=== PATIENT | male | born 1960 | race Caucasian/White ===

== ENCOUNTER 2018-06-22 06:43 | Day surgery (SDC) | payer BC ==
[2018-06-22 07:36] VITALS: BP 178/107; TEMP 97.4
[2018-06-22] MEDS ORDERED: Diazepam 5 MG TAB ONE (07:54)
[2018-06-22 08:08] VITALS: BMI 42.5
--- NOTE | 2018-06-22 10:41 | RAD ---
XR MYELOGRAM 2 OR MORE REGIONS CERVICAL AND LUMBAR: COMPARISON: None. FINDINGS: [employer] radiographs demonstrate grade I L4-L5 anterolisthesis. No acute fracture. The patient was brought to the fluoroscopy suite. All questions were answered. The patient's back was prepped and draped in normal sterile fashion. Informed consent was obtained. Timeout performed. Three mL of Lidocaine was instilled into the superficial and deep soft tissues. Prior to the examina tion, the patient was given 5 mg of Valium for anxiolysis. Using a 22-gauge needle, the thecal sac was accessed. Eleven cc of Omnipaque 300 was instilled into the thecal sac. The patient was tilted in the head-down position until contrast was seen within the cervical canal. IMPRESSION: Technically successful fluoroscopic-guided myelogram for cervical and lumbar myelograms. POS: [facility]
--- NOTE | 2018-06-22 11:26 | CT ---
CT CERVICAL SPINE WITH INTRATHECAL CONTRAST: HISTORY: M47.12, cervical myelopathy and radiculopathy. COMPARISON: None. TECHNIQUE: CT of the cervical spine was performed after intrathecal instillation of contrast. FINDINGS: The paraspinal soft tissues are unremarkable. The lung apices are clear. The thyroid is unremarkable. The paraspinal musculature is normal. No acute fracture. No malalignment. Levels are as follows: C1-C2: Mild degenerative disease at the C1-C2 articulation. Mild narrowing. No acute abnormality. C2-C3: Mild degenerative disk space height loss. Low grade uncinate process hypertrophy. There is moderate left and mild right sided neural foraminal narrowing due to a combination of facet arthrosis and uncinate process hypertrophy. C3-C4: There is severe degenerative disk space height loss. There is circumferential disk osteophyt e complex with superimposed uncinate process hypertrophy. There is mild bilateral facet arthrosis. There is moderate to severe right and moderate left sided neural foraminal narrowing. There is mild effacement of the ventral CSF space without cord abutment. The canal measures approximately a centim eter. C4-C5: Mild degenerative disk space height loss. Mild uncinate process hypertrophy. There is a low grade central and left paracentral posterior disk protrusion. There is narrowing of the ventral CSF space. The spinal canal still measures over a centimeter. The disk protrusion causes moderate left and mild right-sided neural foraminal narrowing. C5-C6: Circumferential disk osteophyte complex and moderate to severe degenerative disk space height loss. There is bilateral subforaminal extension of the posterior disk osteophyte complex. Mild fac et arthropathy. Moderate to severe left and moderate right sided neural foraminal narrowing. C6-C7: There is moderate uncinate process hypertrophy bilaterally. Low grade posterior disk osteoph yte complex. No significant neural foraminal or spinal canal narrowing. IMPRESSION: Moderate spondylosis, as described above. POS: [facility]
--- NOTE | 2018-06-22 11:30 | CT ---
CT LUMBAR SPINE WITH INTRATHECAL CONTRAST: HISTORY: M47.16, lumbar spondylosis with myelopathy. COMPARISON: None. FINDINGS: The aortic contour is nonaneurysmal. No retroperitoneal adenopathy. There is a hypodensity, superior cortex, right kidney, incompletely evaluated. The paraspinal musculature is symmetric. No acute fracture. There is grade 1 anterolisthesis of L5 over S1 due to bilateral pars interarticularis defects with 6 mm of anterolisthesis. Levels are as follows: L1-L2: Low grade facet arthrosis. No neural foramina or spinal canal narrowing. Normal disk height . L2-L3: Normal disk height. Mild facet arthrosis. No neural foraminal or spinal canal narrowing. L3-L4: Small bilateral recess and subforaminal zone posterior disk osteophyte complexes. Mild bilat eral neural foraminal narrowing. No significant narrowing of the spinal canal. L4-L5: Normal disk space height. Moderate facet arthrosis. No significant neural foraminal or spin al canal narrowing. L5-S1: Anterolisthesis, 6 mm. There are bilateral subforaminal and lateral recess posterior disk os teophyte complexes. There is moderate to severe bilateral neural foraminal narrowing with abutment o f the exiting nerve roots. IMPRESSION: Spondylosis centered at L5-S1 with bilateral pars interarticularis defects, 6 mm of anterolisthesis, and severe neural foraminal narrowing with nerve root abutment. POS: [facility]
== END 2018-06-22 09:55 | disposition home or self-care (01) ==
LOC: RAD 06:43
PROVIDERS: ATTEND Radiology Diagnostic Radiology
PROC: B01B1ZZ Fluoroscopy of Spinal Cord using Low Osmolar Contrast (ICD-10-PCS; principal; 2018-06-22)
DX: M43.16 Spondylolisthesis, lumbar region (principal); M47.12 Other spondylosis with myelopathy, cervical region; M47.16 Other spondylosis with myelopathy, lumbar region; M47.817 Spondylosis without myelopathy or radiculopathy, lumbosacral region; Z79.02 Long term (current) use of antithrombotics/antiplatelets; Z79.84 Long term (current) use of oral hypoglycemic drugs; Z79.82 Long term (current) use of aspirin; Z79.899 Other long term (current) drug therapy
CPT/HCPCS: 62305; 72126; 72132

== ENCOUNTER 2019-05-07 07:51 | Outpatient (CLI) | payer BC | END 2019-05-07 07:52 | disposition home or self-care (01) | LOC: CP 07:51 | PROVIDERS: ATTEND Internal Medicine Cardiovascular Disease | DX: R06.02 Shortness of breath (principal) | CPT/HCPCS: 94060; 94727; 94729 ==

== ENCOUNTER 2019-07-12 08:48 | Outpatient (CLI) | payer BC ==
--- NOTE | 2019-07-12 09:08 | RAD ---
Exam: Chest 2 views HISTORY: Dyspnea COMPARISON: None FINDINGS: Two-view left-sided transvenous pacemaker with lead positioned right atrium and right ventr icle Normal cardiac silhouette Lungs and pleural spaces are clear. Chronic changes are noted. Mild hyperinflation. No pneumothorax o r acute osseous abnormalities IMPRESSION: 1. No acute cardiopulmonary process.
== END 2019-07-12 08:49 | disposition home or self-care (01) ==
LOC: RAD 08:48
PROVIDERS: ATTEND Internal Medicine Critical Care Medicine
DX: R06.00 Dyspnea, unspecified (principal)
CPT/HCPCS: 71046

== ENCOUNTER 2019-08-12 13:55 | Inpatient (IN) | payer BC ==
[2019-08-12 14:32] LABS: #Basophils 0.1 thou/uL (0.0-0.2); #Eosinphils 0.4 thou/uL (0.0-0.7); #Lymphocytes 1.5 thou/uL (1.20-3.40); #Monocytes 0.5 thou/uL (0.11-0.59); #Neutrophils 6.9 thou/uL (1.40-6.50); %Basophils 0.5 % (0.0-1.0); %Eosinophils 4.7 % (0.0-10.0); %Monocytes 5.1 % (0.0-10.0); %Neutrophils 73.6 % (42.0-75.0); Hemoglobin 15.3 g/dL (14.0-18.0); Mean Corpuscular HGB CONC 34.4 g/dL (32.0-36.0); Mean Corpuscular Hemoglobin 30.1 pg (27.0-31.0); Mean Corpuscular Volume 87.5 fL (78.0-98.0); Mean Platelet Volume 8.9 fL (7.4-10.4); Platelet Count 179 thou/uL (130-400); Red Blood Cell (RBC) Count 5.06 mill/uL (4.70-6.10); White Blood Cell (WBC) Count 9.4 thou/uL (4.8-10.8)
[2019-08-12 14:39] LABS: PTT 28.8 SEC (22.9-36.1); Prothrombin Time 13.6 SEC (12.0-14.7)
--- NOTE | 2019-08-12 14:40 | CT ---
CT Brain WO Con HISTORY: Slurred speech and confusion. History of TIA and high blood pressure. COMPARISON: None. FINDINGS: The ventricular and cisternal system is within normal limits. Slight prominence to the late ral and third ventricles. Clinical correlation as to any suspicion for normal pressure hydrocephalus. There are no signs of intracerebral hemorrhage or extra-axial fluid collections. The mastoid air cells and visualized sinuses are clear. IMPRESSION: No acute intracranial abnormalities. Slight prominence to the lateral and third ventricle s clinical correlation is any findings that would suggest normal pressure hydrocephalus. Findings telephoned to Dr. Vaughn at 1436 hours.
[2019-08-12 14:45] LABS: ALT (SGPT) 36 U/L (8-55); AST (SGOT) 20 U/L (5-34); Albumin 4.2 g/dL (3.5-5.0); Alkaline Phosphatase 104 U/L (40-110); Anion Gap 13 mmol/L (10-20); BUN (Urea Nitrogen) 11 mg/dL (8.4-25.7); Bilirubin, Total 0.7 mg/dL (0.2-1.2); Calc. Creatinine Clearance 0 mL/min (70-130); Calcium 8.9 mg/dL (7.8-10.44); Carbon Dioxide 23 mmol/L (22-29); Chloride 107 mmol/L (98-107); Estimated GFR-MDRD 77; Globulin 2.9 g/dL (2.4-3.5); Glucose 162 mg/dL (70-105); Potassium 4.4 mmol/L (3.5-5.1); Protein, Total 7.1 g/dL (6.0-8.3); Sodium 139 mmol/L (136-145)
--- NOTE | 2019-08-12 15:18 | RAD ---
CHEST 1 VIEW: Date: 08/12/2019 HISTORY: Dyspnea. COMPARISON: 07/12/2019. FINDINGS: Heart size is borderline. No confluent pneumonia, overt edema, or pleural effusion. IMPRESSION: Borderline cardiomegaly. No significant acute process. No evidence for pneumonia. POS: [facility]
[2019-08-12 15:22] LABS: Bilirubin Negative (Negative); Blood, Urine Negative (Negative); Clarity Clear (Clear); Glucose, Urine (Dipstick) Normal (Negative); Leukocyte Negative Leu/uL (Negative); Nitrite Negative (Negative); Protein, Urine (Dipstick) Negative (Neg-Trace); Urobilinogen Normal mg/dL (Less than 2)
[2019-08-12 15:46] LABS: CKMB 2.7 ng/mL (0-6.6)
[2019-08-12] MEDS ORDERED: Aspirin Chewable 81 MG TAB ONE (16:07)
[2019-08-12] MEDS ORDERED: Nitroglycerin 2% Ointment 1 INCH/1 GM Packet ONE (16:07)
[2019-08-12] MEDS ORDERED: Acetaminophen 325 MG TAB PO PRN (17:44)
[2019-08-12] MEDS ORDERED: Ondansetron ODT 4 MG TAB SL PRN (17:44)
[2019-08-12] MEDS ORDERED: Ondansetron PF 4 MG/2 ML Vial IVP PRN (17:44)
[2019-08-12 18:24] VITALS: BMI 35.1
[2019-08-12] MEDS ORDERED: Dextrose 50% Abboject 50 ML SYRINGE SLOW IVP PRN (18:24)
[2019-08-12] MEDS ORDERED: HumaLOG 300 UNITS/3 ML VIAL SC PRN (18:24)
[2019-08-12] MEDS ORDERED: Dextrose 5% in Water 1,000 ML IV PRN (18:24)
[2019-08-12] MEDS ORDERED: Acetaminophen 500 MG TAB PO PRN (18:36)
[2019-08-12] MEDS ORDERED: Amlodipine 10 MG TAB PO SCH (18:45)
[2019-08-12] MEDS ORDERED: Chlorthalidone 25 MG TAB PO SCH (18:45)
--- NOTE | 2019-08-12 20:13 | PDOC.HHP ---
Hospitalist HPI - History of Present Illness confusion History of Present Illness: 59yo M w/ MHx of CAD s/p stent placement and pacemaker (last replaced 4 months ago), T2DM, HTN who presents for confusion. Earlier today, dropped of his son, returned home, and felt weak. Had a conversation over the phone with his , who told him he sounded confused and that he had a slurred speech (though patient denies having slurred speech) so asked him to come to the ED. Aslo endorses blurry vision during his episode of confusion, increased urinary frequency over the past week, and nonadherence to all his medications for the past 3 months, failed to explain why. On encounter, lying comfortably in bed and endorses complete resolution of confusion. Denies headache, fever, chills, diaphoresis, facial asymmetry, dysphagia, dysarthria, chest pain or pressure, new shoulder pain or jaw pain, dyspnea, cough, abdominal pain, diarrhea, dyuria, burning on urination, focal weakness, sick contacts, hematemesis, hematochezia, melena, skin lesions, psychiatric history. ED Course: In the ED, was found to have grossly elevated BP, so administered a nitro patch and was admitted to the stroke floor for observation. Hospitalist ROS - Review of Systems All other systems reviewed; all pertinent +/- noted in HPI/Subj Hospitalist History - Past Medical History Source: patient Cardiac: reports: CAD, HTN Pulmonary: reports: CVA/TIA/stroke, heart attack, high cholesterol [employer]: denies: Dementia Gastrointestinal: reports: no pertinent history Heme/Onc: reports: no pertinent history Hepatobiliary: reports: no pertinent history Psych: reports: no pertinent history Endocrine: reports: Diabetes - Social History Smoking Status: Never smoker Alcohol: reports: None Drugs: reports: none Living Situation: With Family Activity level: independent ambulation - Exam General Appearance: NAD, awake alert Eye: PERRL. negative: anicteric sclera ENT: normocephalic atraumatic, dry oral mucosa Neck: supple, symmetric, no JVD Heart: RRR, no gallops, II/IV Respiratory: CTAB, no wheezes, no rales, no ronchi, normal chest expansion, no tachypnea Gastrointestinal: soft, non-tender, non-distended, normal bowel sounds Extremities: no edema Neurological: cranial nerve grossly intact, no weakness, no focal deficits. negative: facial droop, hemiplegia, speech deficit, vision deficit Musculoskeletal: normal tone, normal strength Psychiatric: normal affect, normal behavior, A&O x 3 Hospitalist Results - Labs Result Diagrams: 08/12/19 14:13 08/12/19 14:13 Lab results: WBC 9.4 thou/uL (4.8-10.8) 08/12/19 14:13 Hgb 15.3 g/dL (14.0-18.0) 08/12/19 14:13 Hct 44.3 % (42.0-52.0) 08/12/19 14:13 MCV 87.5 fL (78.0-98.0) 08/12/19 14:13 Plt Count 179 thou/uL (130-400) 08/12/19 14:13 Neutrophils % 73.6 % (42.0-75.0) 08/12/19 14:13 Sodium 139 mmol/L (136-145) 08/12/19 14:13 Potassium 4.4 mmol/L (3.5-5.1) 08/12/19 14:13 Chloride 107 mmol/L (98-107) 08/12/19 14:13 Carbon Dioxide 23 mmol/L (22-29) 08/12/19 14:13 BUN 11 mg/dL (8.4-25.7) 08/12/19 14:13 Creatinine 1.00 mg/dL (0.7-1.3) 08/12/19 14:13 Glucose 162 mg/dL (70-105) H 08/12/19 14:13 Calcium 8.9 mg/dL (7.8-10.44) 08/12/19 14:13 Total Bilirubin 0.7 mg/dL (0.2-1.2) 08/12/19 14:13 AST 20 U/L (5-34) 08/12/19 14:13 ALT 36 U/L (8-55) 08/12/19 14:13 Alkaline Phosphatase 104 U/L (40-110) 08/12/19 14:13 CK-MB (CK-2) 2.7 ng/mL (0-6.6) 08/12/19 14:13 Troponin I 0.047 ng/mL (< 0.028) H 08/12/19 14:13 Serum Total Protein 7.1 g/dL (6.0-8.3) 08/12/19 14:13 Albumin 4.2 g/dL (3.5-5.0) 08/12/19 14:13 Urine Ketones Negative mg/dL (Negative) 08/12/19 14:58 Urine Blood Negative (Negative) 08/12/19 14:58 Urine Nitrite Negative (Negative) 08/12/19 14:58 Ur Leukocyte Esterase Negative [place]/uL (Negative) 08/12/19 14:58 - EKG Interpretation EKG: biventricular pacing with no concordant MARY suggestive of acute ischemia - Radiology Interpretation CT scan - head Status: image reviewed by me Chest x-ray Status: image reviewed by me Hospitalist H&P A/P - Problem (1) Hypertensive emergency Code(s): I16.1 - HYPERTENSIVE EMERGENCY Status: Acute (2) T2DM (type 2 diabetes mellitus) Status: Acute (3) Presence of stent in coronary artery in patient with coronary artery disease Code(s): I25.10 - ATHSCL HEART DISEASE OF [place] CORONARY ARTERY W/O ANG PCTRS; Z95.5 - PRESENCE OF CORONARY ANGIOPLASTY IMPLANT AND GRAFT Status: Acute (4) TIA (transient ischemic attack) Code(s): G45.9 - TRANSIENT CEREBRAL ISCHEMIC ATTACK, UNSPECIFIED Status: Acute - Plan Plan: A: -came with grossly elevated BP due to medication nonadherence -symptoms a/w TIA (slurred speech); labs showed indeterminate trop; therefore emergency; symptoms resolved on presentation -CT head showed no acute ischemia or hematoma -borderline hypotensive after starting nitro patch; however asymptomatic despite significant decrease in blood pressure -less likely a result of hypoglycemia since patient endorses proper eating and is on no medications that would cause hypoglycemia Plan: -echo, carotid duplex, orthostats; can't undergo MRI because of pacemaker -trend trop; if develops symptoms of ACS, repeat EKG -restarted home meds including aspirin and plavix; will gradually restart antihtn -A1c; restarted metformin, hypoglycemia protocol -patient educated regarding importance of taking medications; expressed competence though uncertain regarding adherence in the future Dispo/PPX -full code -DVT PPx: heparin subq -GI PPX: restarted home pantoprazole
[2019-08-12] MEDS: hydrALAZINE 25 MG TAB PO SCH (20:21)
[2019-08-12] MEDS: Heparin 5,000 UNITS/ML VIAL SC SCH (20:23)
[2019-08-12] MEDS: Ketotifen Fumarate 0.025% Ophth Soln 5 ml Bottle EA EYE SCH (20:23)
[2019-08-12 21:11] LABS: Troponin I 0.052 ng/mL (< 0.028)
[2019-08-13 04:58] LABS: #Basophils 0.1 thou/uL (0.0-0.2); #Eosinphils 0.5 thou/uL (0.0-0.7); #Lymphocytes 1.7 thou/uL (1.20-3.40); #Monocytes 0.6 thou/uL (0.11-0.59); #Neutrophils 5.2 thou/uL (1.40-6.50); %Basophils 0.8 % (0.0-1.0); %Eosinophils 5.8 % (0.0-10.0); %Lymphocytes 21.3 % (21.0-51.0); %Monocytes 7.5 % (0.0-10.0); %Neutrophils 64.6 % (42.0-75.0); Hemoglobin 14.8 g/dL (14.0-18.0); Mean Corpuscular HGB CONC 34.4 g/dL (32.0-36.0); Mean Corpuscular Hemoglobin 30.2 pg (27.0-31.0); Mean Corpuscular Volume 87.8 fL (78.0-98.0); Mean Platelet Volume 8.6 fL (7.4-10.4); Platelet Count 158 thou/uL (130-400); Red Blood Cell (RBC) Count 4.91 mill/uL (4.70-6.10)
[2019-08-13 05:07] LABS: Hemoglobin A1c 6.2 % (4.0-6.0)
[2019-08-13 05:28] LABS: Anion Gap 14 mmol/L (10-20); BUN (Urea Nitrogen) 12 mg/dL (8.4-25.7); Calc. Creatinine Clearance 142 mL/min (70-130); Calcium 8.8 mg/dL (7.8-10.44); Carbon Dioxide 24 mmol/L (22-29); Chloride 105 mmol/L (98-107); Estimated GFR-MDRD 90; Glucose 99 mg/dL (70-105); Magnesium 1.9 mg/dL (1.6-2.6); Potassium 4.1 mmol/L (3.5-5.1); Sodium 139 mmol/L (136-145)
--- NOTE | 2019-08-13 08:24 | ULT ---
BILATERAL CAROTID DUPLEX ULTRASOUND INCLUDING COLOR AND SPECTRAL DOPPLER IMAGING: HISTORY: TIA. FINDINGS: Visual plaque in the distal CCAs and proximal ICAs bilaterally. PSV right ICA 80 cm/s, EDV 37 cm/s. ICA/CCA ratio 1.1. PSV left ICA 87 cm/s, EDV 31 cm/s. ICA/CCA ratio 1.1. Vertebral flow is antegrade. IMPRESSION: Bilateral visible plaque, evidence for atherosclerotic carotid artery vascular disease. No hemodynam ically significant stenosis. POS: [facility]
[2019-08-13] MEDS: Losartan 25 MG TAB PO SCH (08:41)
[2019-08-13] MEDS: Clopidogrel Bisulfate 75 MG TAB PO SCH (08:41)
[2019-08-13] MEDS: metFORMIN 500 MG TAB PO SCH ×2 (08:42→15:52)
[2019-08-13] MEDS: Atorvastatin Calcium 40 MG TAB PO SCH (08:42)
[2019-08-13] MEDS: Aspirin Chewable 81 MG TAB PO SCH (08:42)
[2019-08-13] MEDS: hydrALAZINE 25 MG TAB PO SCH ×3 (08:42→21:13)
[2019-08-13] MEDS: Heparin 5,000 UNITS/ML VIAL SC SCH ×3 (08:43→21:12)
[2019-08-13] MEDS ORDERED: FLU VACC QS2019-20(6MOS UP)/PF 60 MCG/0.5 ML SYRINGE IM ONE (09:00)
[2019-08-13] MEDS ORDERED: Non-Formulary Item 1 EACH (Omeprazole [Omeprazole] 20 MG) PO SCH (09:00)
[2019-08-13] MEDS: Ketotifen Fumarate 0.025% Ophth Soln 5 ml Bottle EA EYE SCH ×2 (09:07→21:13)
[2019-08-13] MEDS: Spironolactone 25 MG TAB PO SCH (09:36)
--- NOTE | 2019-08-13 21:13 | PDOC.HOSPP ---
- Subjective Encounter Date: 08/13/19 Encounter Time: 10:00 Subjective: no overnight events. This morning, feels well and denies additional episodes of confusion since admission. Has no complaints. - Objective Vital Signs & Weight: Vital Signs (12 hours) Temp Pulse Pulse Pulse Resp BP BP 08/13/19 19:57 97.5 F L 60 16 08/13/19 15:55 98.4 F 63 16 08/13/19 15:52 62 08/13/19 12:00 98.4 F 62 18 08/13/19 10:29 73 138/85 174/88 H 08/13/19 09:52 61 74 147/72 H 170/91 H 08/13/19 09:38 60 BP Pulse Ox 08/13/19 19:57 141/80 H 95 08/13/19 15:55 125/78 94 L 08/13/19 15:52 08/13/19 12:00 150/82 H 96 08/13/19 10:29 08/13/19 09:52 08/13/19 09:38 130/70 Weight Weight 236 lb I&O: 08/12/19 08/13/19 08/14/19 06:59 06:59 06:59 Intake Total 240 1000 Balance 240 1000 Result Diagrams: 08/13/19 04:21 08/13/19 04:21 Additional Labs: Accuchecks 08/13/19 08/13/19 08/13/19 20:27 16:48 10:39 POC Glucose 136 H 134 H 120 H 08/13/19 08/12/19 06:16 19:53 POC Glucose 98 115 H Hospitalist ROS - Review of Systems Constitutional: denies: fever, chills, sweats, weakness, malaise, other Eyes: denies: vision change Respiratory: denies: cough, dry, shortness of breath, hemoptysis, SOB with excertion, pleuritic pain, sputum, wheezing, other Cardiovascular: denies: chest pain, palpitations, orthopnea, paroxysmal noc. dyspnea, edema, light headedness, other Gastrointestinal: denies: nausea, vomiting, abdominal pain, diarrhea, constipation, melena, hematochezia, other Genitourinary: denies: dysuria, frequency, incontinence, hematuria, retention, other Neurological: denies: weakness, numbness, incoordination, change in speech, confusion, seizures, other - Medication Medications: Active Medications Generic Name Dose Route Start Last Admin Trade Name Rodneyq PRN Reason Stop Dose Admin Aspirin 81 mg 08/13/19 09:00 08/13/19 08:42 Aspirin Chewable PO 81 mg DAILY [facility] Administration Atorvastatin Calcium 80 mg 08/13/19 09:00 08/13/19 08:42 Lipitor PO 80 mg DAILY [facility] Administration Clopidogrel Bisulfate 75 mg 08/13/19 09:00 08/13/19 08:41 Plavix PO 75 mg DAILY [facility] Administration Heparin Sodium (Porcine) 5,000 units 08/12/19 21:00 08/13/19 15:52 Heparin SC 5,000 units TID [facility] Administration Hydralazine HCl 25 mg 08/12/19 21:00 08/13/19 15:52 Apresoline PO 25 mg TID [facility] Administration Ketotifen Fumarate 1 drop 08/12/19 21:00 08/13/19 09:07 Zaditor 0.025% Ophth Soln EA EYE Not Given BID [facility] Losartan Potassium 50 mg 08/13/19 09:00 08/13/19 08:41 Cozaar PO 50 mg DAILY [facility] Administration Metformin HCl 500 mg 08/13/19 08:00 08/13/19 15:52 Glucophage PO 500 mg BID-WM [facility] Administration Metoprolol Succinate 100 mg 08/13/19 09:00 08/13/19 08:41 Toprol Xl PO 100 mg DAILY [facility] Administration Pantoprazole Sodium 40 mg 08/13/19 09:00 08/13/19 08:40 Protonix PO 40 mg DAILY [facility] Administration Spironolactone 50 mg 08/13/19 09:00 08/13/19 09:36 Aldactone PO 50 mg DAILY [facility] Administration - Exam General Appearance: NAD, awake alert Heart: RRR, no murmur, no gallops, no rubs, normal peripheral pulses Respiratory: CTAB, no wheezes, no rales, no ronchi, normal chest expansion, no tachypnea, normal percussion Gastrointestinal: soft, non-tender, non-distended, normal bowel sounds, no palpable masses, no hepatomegaly, no splenomegaly, no bruit Neurological: cranial nerve grossly intact, normal sensation to touch, no weakness, no focal deficits, no new deficit Musculoskeletal: normal tone, normal strength, no muscle wasting Psychiatric: normal affect, normal behavior, A&O x 3 Hosp A/P (1) Heart failure with reduced ejection fraction, NYHA class II Code(s): I50.20 - UNSPECIFIED SYSTOLIC (CONGESTIVE) HEART FAILURE Status: Acute (2) T2DM (type 2 diabetes mellitus) Status: Acute (3) Presence of stent in coronary artery in patient with coronary artery disease Code(s): I25.10 - ATHSCL HEART DISEASE OF [place] CORONARY ARTERY W/O ANG PCTRS; Z95.5 - PRESENCE OF CORONARY ANGIOPLASTY IMPLANT AND GRAFT Status: Acute (4) TIA (transient ischemic attack) Code(s): G45.9 - TRANSIENT CEREBRAL ISCHEMIC ATTACK, UNSPECIFIED Status: Acute - Plan * patient was pending discharge however oral communicatio regarding echocardiography - EF 20% * likely worsening cardiomyopathy due to nonadherence to medications in context of CAD * patient euvolemic on exam * transfer to telemetry; cardiology consutled as may need lifevest/AICD * on losartan, metoprolol, and spironolactone; will await further recs from cardiology
[2019-08-14 05:22] LABS: #Basophils 0.1 thou/uL (0.0-0.2); #Eosinphils 0.6 thou/uL (0.0-0.7); #Lymphocytes 2.3 thou/uL (1.20-3.40); #Monocytes 0.8 thou/uL (0.11-0.59); #Neutrophils 8.6 thou/uL (1.40-6.50); %Basophils 0.7 % (0.0-1.0); %Eosinophils 5.1 % (0.0-10.0); %Lymphocytes 18.3 % (21.0-51.0); %Monocytes 6.5 % (0.0-10.0); %Neutrophils 69.4 % (42.0-75.0); Hemoglobin 16.5 g/dL (14.0-18.0); Mean Corpuscular HGB CONC 33.9 g/dL (32.0-36.0); Mean Corpuscular Hemoglobin 29.7 pg (27.0-31.0); Mean Corpuscular Volume 87.7 fL (78.0-98.0); Mean Platelet Volume 8.4 fL (7.4-10.4); Platelet Count 230 thou/uL (130-400); RBC Distribution Width 13.2 % (11.5-14.5); Red Blood Cell (RBC) Count 5.54 mill/uL (4.70-6.10); White Blood Cell (WBC) Count 12.3 thou/uL (4.8-10.8)
[2019-08-14 05:23] LABS: INR-International Normal Ratio 1.1
[2019-08-14 05:33] LABS: Anion Gap 15 mmol/L (10-20); BUN (Urea Nitrogen) 16 mg/dL (8.4-25.7); Calc. Creatinine Clearance 116 mL/min (70-130); Calcium 9.4 mg/dL (7.8-10.44); Carbon Dioxide 21 mmol/L (22-29); Chloride 106 mmol/L (98-107); Estimated GFR-MDRD 72; Glucose 110 mg/dL (70-105); Potassium 4.8 mmol/L (3.5-5.1); Sodium 137 mmol/L (136-145)
[2019-08-14] MEDS: Clopidogrel Bisulfate 75 MG TAB PO SCH (09:19)
[2019-08-14] MEDS: metFORMIN 500 MG TAB PO SCH ×2 (09:19→16:22)
[2019-08-14] MEDS: hydrALAZINE 25 MG TAB PO SCH ×3 (09:19→21:31)
[2019-08-14] MEDS: Losartan 25 MG TAB PO SCH (09:19)
[2019-08-14] MEDS: Aspirin Chewable 81 MG TAB PO SCH (09:19)
[2019-08-14] MEDS: Spironolactone 25 MG TAB PO SCH (09:19)
[2019-08-14] MEDS: Atorvastatin Calcium 40 MG TAB PO SCH (09:19)
[2019-08-14] MEDS: Heparin 5,000 UNITS/ML VIAL SC SCH ×3 (09:20→21:30)
[2019-08-14] MEDS: Ketotifen Fumarate 0.025% Ophth Soln 5 ml Bottle EA EYE SCH ×2 (09:21→21:31)
--- NOTE | 2019-08-14 21:44 | CON ---
DATE OF CONSULTATION: HISTORY OF PRESENT ILLNESS: Maged Lopez is a 59-year-old white male, who is admitted for evaluation of confusion and slurred speech. I have followed him since January 2010. On January 02, 2009, he had placement of a [employer] [place] [id number] [id number] pacemaker. He states that during a herniorrhaphy surgery that his heart rate dropped to 15 per minute. Prior to pacemaker placement, he had episodes of diplopia as well as falling to the floor and shortness of breath. However, after the pacemaker was placed, he did not have any further episodes of dizziness or lightheadedness. He essentially was ventricularly paced 100% of the time. He continued to be followed intermittently and in March 2015, underwent placement of a drug-eluting stent in the first obtuse marginal [facility] after an abnormal Cardiolite. He continued at times to complain of exertional shortness of breath. His pacemaker in mid 2018 was nearing replacement indicator. He underwent re-evaluation with echocardiogram on March 11, 2019. This revealed an ejection fraction of 50% to 55%, mild left atrial enlargement, aortic sclerosis and mild mitral regurgitation. He then underwent replacement of his pacemaker at [facility] in February 2019 without incident. He continued to complain of exertional dyspnea and underwent Lexiscan Cardiolite testing, which revealed an inferior and apical fixed defects. He then underwent repeat catheterization on April 24, 2019. Ejection fraction was 50% to 55%. He was found to have mild coronary artery disease with 20% proximal LAD, 30% mid LAD, 40% ramus, 20% in-stent restenosis of the first obtuse marginal. Multiple attempts were made to try to have him undergo pulmonary function testing, which he eventually did and was found to have a reversible component and has been seen by pulmonology. He continues to be noncompliant with getting his nebulizer available, but with hand-held inhalers, states that his coughing and shortness of breath has improved. He was last seen in the office on July 30, 2019. He now is admitted after an episode of confusion. While talking, his noted some slurred speech. In the emergency room, his blood pressure was 202/105 and he came to the hospital for further evaluation. Carotid Doppler revealed plaquing , but no hemodynamically significant stenosis. Brain CT revealed no acute findings. His echocardiogram, however, reveals that his ejection fraction has fallen to 20% to 25%. On interrogation of his pacemaker, he does have some episodes of high atrial rates lasting up to 20 minutes. PAST MEDICAL HISTORY: Hypertension, hypercholesterolemia, sleep apnea on CPAP, prior history of seizures, hypothyroidism, bradycardia with pacemaker placement, asthma, coronary artery disease. CURRENT MEDICATIONS: 1. Albuterol 2 puffs q.4 hours p.r.n. 2. Aspirin 81 daily. 3. Atorvastatin 80 daily. 4. Clonidine 0.1 mg at bedtime. 5. Zetia 10 mg daily. 6. Fish oil 1000 mg daily. 7. Furosemide 40 daily. 8. Loratadine 10 mg daily. 9. Metformin 500 b.i.d. 10. Omeprazole 20 daily. 11. Spironolactone 50 daily. 12. Metoprolol is not listed amongst his medication, but when he was in the office on July 30, metoprolol was increased to 200 mg daily and amlodipine was discontinued due to peripheral edema. ALLERGIES: NONE. SOCIAL HISTORY: He does not smoke or drink. 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 FAMILY HISTORY: Father had history of CABG and in fact the night prior to my initial evaluation of Maged. REVIEW OF SYSTEMS: A 10-point review of systems is otherwise unremarkable. PHYSICAL EXAMINATION: VITAL SIGNS: Blood pressure 125/74, pulse 64. HEENT: PERRL. NECK: Supple. CHEST: Clear. CARDIAC: S1 and S2 normal without any S3, S4 or murmurs. Carotid upstrokes normal without bruits. ABDOMEN: Normal bowel sounds without tenderness or organomegaly. EXTREMITIES: Revealed no clubbing, cyanosis, or edema. NEUROLOGIC: Is at his baseline. LABORATORY DATA: EKG revealed atrial and ventricular pacing. Echocardiogram revealed an ejection fraction of 20% to 25%, which is a new finding. CBC [place] [id number], INR 1.1. Sodium 137, potassium 4.8, chloride 106, carbon dioxide 21, BUN 16, creatinine 1.06. Troponin I is 0.052. IMPRESSION: 1. Nonischemic cardiomyopathy with ejection fraction dropping from 50% to 55% in February 2019 to 20% to 25% at this time. He has had chronic ventricular pacing for the last 10 years. However, his left ventricular function was normal until now. 2. Coronary artery disease status post stent placement in the first obtuse marginal in March 2015. He underwent repeat catheterization in March 2019, which revealed only minimal disease and ejection fraction of 50% to 55%. 3. Hypertension. 4. Hypercholesterolemia. 5. Paroxysmal atrial fibrillation, on pacemaker. 6. Positive family history. 7. Obstructive sleep apnea noncompliant with CPAP. 8. Asthma. However, the patient has been noncompliant with getting his neb treatments set up. PLAN: Electrophysiology will be consulted about possible upgrade of his pacemaker to a biventricular pacemaker or ICD with sudden drop in his ejection fraction. Also, at times, I am uncertain as to his compliance with medications. Job ID: [id number] MTDD
--- NOTE | 2019-08-14 23:50 | PDOC.HOSPP ---
- Subjective Encounter Date: 08/14/19 Encounter Time: 08:00 Subjective: no overnight events. This morning, feels well and has no complaints. - Objective Vital Signs & Weight: Vital Signs (12 hours) Temp Pulse Resp BP Pulse Ox 08/14/19 21:31 61 08/14/19 20:00 97.5 F L 61 16 143/83 H 94 L 08/14/19 15:50 98.1 F 64 16 125/74 95 Weight Weight 236 lb I&O: 08/13/19 08/14/19 08/15/19 06:59 06:59 06:59 Intake Total 240 1240 880 Balance 240 1240 880 Result Diagrams: 08/14/19 04:58 08/14/19 04:58 Additional Labs: Accuchecks 08/14/19 08/14/19 08/14/19 20:21 17:03 10:50 POC Glucose 133 H 117 H 111 H 08/14/19 05:16 POC Glucose 109 Hospitalist ROS - Review of Systems Constitutional: denies: fever, chills, sweats, weakness, malaise, other Respiratory: denies: cough, dry, shortness of breath, hemoptysis, SOB with excertion, pleuritic pain, sputum, wheezing, other Cardiovascular: denies: chest pain, palpitations, orthopnea, paroxysmal noc. dyspnea, edema, light headedness, other Gastrointestinal: denies: nausea, vomiting, abdominal pain, diarrhea, constipation, melena, hematochezia, other Genitourinary: denies: dysuria, frequency, incontinence, hematuria, retention, other Neurological: denies: weakness, numbness, incoordination, change in speech, confusion, seizures, other - Medication Medications: Active Medications Generic Name Dose Route Start Last Admin Trade Name Freq PRN Reason Stop Dose Admin Aspirin 81 mg 08/13/19 09:00 08/14/19 09:19 Aspirin Chewable PO 81 mg DAILY [facility] Administration Atorvastatin Calcium 80 mg 08/13/19 09:00 08/14/19 09:19 Lipitor PO 80 mg DAILY KEESHA Administration Clopidogrel Bisulfate 75 mg 08/13/19 09:00 08/14/19 09:19 Plavix PO 75 mg DAILY KEESHA Administration Heparin Sodium (Porcine) 5,000 units 08/12/19 21:00 08/14/19 21:30 Heparin SC 5,000 units TID KEESHA Administration Hydralazine HCl 25 mg 08/12/19 21:00 08/14/19 21:31 Apresoline PO Not Given TID [facility] Ketotifen Fumarate 1 drop 08/12/19 21:00 08/14/19 21:31 Zaditor 0.025% Ophth Soln EA EYE Not Given BID KEESHA Losartan Potassium 50 mg 08/13/19 09:00 08/14/19 09:19 Cozaar PO 50 mg DAILY KEESHA Administration Metformin HCl 500 mg 08/13/19 08:00 08/14/19 16:22 Glucophage PO 500 mg BID-WM KEESHA Administration Metoprolol Succinate 100 mg 08/13/19 09:00 08/14/19 09:18 Toprol Xl PO 100 mg DAILY KEESHA Administration Pantoprazole Sodium 40 mg 08/13/19 09:00 08/14/19 09:19 Protonix PO 40 mg DAILY [facility]ES[facility] Administration Spironolactone 50 mg 08/13/19 09:00 08/14/19 09:19 Aldactone PO 50 mg DAILY KEESHA Administration - Exam General Appearance: NAD, awake alert ENT: normocephalic atraumatic, no oropharyngeal lesions, moist mucosa Heart: RRR, no murmur, no gallops, no rubs, normal peripheral pulses Respiratory: CTAB, no wheezes, no rales, no ronchi, normal chest expansion, no tachypnea, normal percussion Gastrointestinal: soft, non-tender, non-distended, normal bowel sounds, no palpable masses, no hepatomegaly, no splenomegaly, no bruit Extremities: 1+ LE edema Musculoskeletal: normal tone, normal strength, no muscle wasting Psychiatric: normal affect, normal behavior, A&O x 3 Hosp A/P (1) Heart failure with reduced ejection fraction, NYHA class II Code(s): I50.20 - UNSPECIFIED SYSTOLIC (CONGESTIVE) HEART FAILURE Status: Acute (2) T2DM (type 2 diabetes mellitus) Status: Acute (3) Presence of stent in coronary artery in patient with coronary artery disease Code(s): I25.10 - ATHSCL HEART DISEASE OF [place] CORONARY ARTERY W/O ANG PCTRS; Z95.5 - PRESENCE OF CORONARY ANGIOPLASTY IMPLANT AND GRAFT Status: Acute (4) TIA (transient ischemic attack) Code(s): G45.9 - TRANSIENT CEREBRAL ISCHEMIC ATTACK, UNSPECIFIED Status: Acute - Plan * no change in clinical condition * ECHO showing EF 20-25% significantly reduced compared to 2019 * on losartan, metoprolol, and spironolactone; Appreciated cardiology recs; pending eval by EP for possible pacemaker upgrade
[2019-08-15 05:07] LABS: #Basophils 0.1 thou/uL (0.0-0.2); #Eosinphils 0.6 thou/uL (0.0-0.7); #Lymphocytes 2.1 thou/uL (1.20-3.40); #Monocytes 0.7 thou/uL (0.11-0.59); #Neutrophils 6.4 thou/uL (1.40-6.50); %Basophils 0.8 % (0.0-1.0); %Lymphocytes 21.3 % (21.0-51.0); %Monocytes 7.1 % (0.0-10.0); %Neutrophils 64.8 % (42.0-75.0); Hemoglobin 15.9 g/dL (14.0-18.0); Mean Corpuscular HGB CONC 33.2 g/dL (32.0-36.0); Mean Corpuscular Hemoglobin 29.3 pg (27.0-31.0); Mean Corpuscular Volume 88.3 fL (78.0-98.0); Mean Platelet Volume 8.5 fL (7.4-10.4); Platelet Count 207 thou/uL (130-400); RBC Distribution Width 13.3 % (11.5-14.5); Red Blood Cell (RBC) Count 5.43 mill/uL (4.70-6.10); White Blood Cell (WBC) Count 9.8 thou/uL (4.8-10.8)
[2019-08-15 05:17] LABS: Prothrombin Time 13.5 SEC (12.0-14.7)
[2019-08-15 05:38] LABS: Anion Gap 13 mmol/L (10-20); BUN (Urea Nitrogen) 17 mg/dL (8.4-25.7); Calc. Creatinine Clearance 115 mL/min (70-130); Calcium 9.3 mg/dL (7.8-10.44); Carbon Dioxide 21 mmol/L (22-29); Chloride 108 mmol/L (98-107); Estimated GFR-MDRD 71; Glucose 109 mg/dL (70-105); Potassium 4.8 mmol/L (3.5-5.1); Sodium 137 mmol/L (136-145)
[2019-08-15] MEDS: Losartan 25 MG TAB PO SCH (08:14)
[2019-08-15] MEDS: Ketotifen Fumarate 0.025% Ophth Soln 5 ml Bottle EA EYE SCH ×2 (08:14→22:02)
[2019-08-15] MEDS: Atorvastatin Calcium 40 MG TAB PO SCH (08:15)
[2019-08-15] MEDS: Aspirin Chewable 81 MG TAB PO SCH (08:15)
[2019-08-15] MEDS: metFORMIN 500 MG TAB PO SCH ×2 (08:15→17:45)
[2019-08-15] MEDS: Spironolactone 25 MG TAB PO SCH (08:15)
[2019-08-15] MEDS: Clopidogrel Bisulfate 75 MG TAB PO SCH (08:16)
[2019-08-15] MEDS: hydrALAZINE 25 MG TAB PO SCH ×2 (08:16→16:04)
[2019-08-15] MEDS: Heparin 5,000 UNITS/ML VIAL SC SCH ×2 (09:34→16:05)
[2019-08-15] MEDS: BIMATOPROST OP SCH ×3 (10:22→10:25)
--- NOTE | 2019-08-15 13:21 | PQF ---
CLINICAL DOCUMENTATION IMPROVEMENT CLARIFICATION FORM: ICD-10 Updated PLEASE DO AN ADDENDUM TO THE PROGRESS NOTE WITH ANY DOCUMENTATION UPDATES OR ADDITIONS AND CARRY THROUGH TO DC SUMMARY. THANK YOU. DATE: 08/15/19 ATTN: DR. DAVIS Please exercise your independent, professional judgment in responding to the clarification form. Clinical indicators are provided on the bottom of this form for your review Please check appropriate box(s): HEART FAILURE: A. ACUITY [ ] Acute [x ] Acute on Chronic [ ] Chronic B. TYPE [ ] Systolic / HFrEF [ ] Diastolic / HFpEF [ x ] Combined Systolic / Diastolic [ ] Hypertensive Heart and Kidney disease [ ] Hypertensive Heart Disease [ ] Hypertensive Kidney Disease [ ] Other diagnosis [ ] Unable to determine In addition, please specify: Present on Admission (POA): [ x] Yes [ ] No [ ] Unable to determine For continuity of documentation, please document condition throughout progress notes and discharge summary. Thank You. CLINICAL INDICATORS - SIGNS / SYMPTOMS / LABS / RESULTS AND LOCATION IN EMR PROGRESS NOTE 08/13: "HEART FAILURE" PROGRESS NOTE 08/14: "ECHO SHOWING EF 20-25% SIGNIFICANTLY REDUCED COMPARED TO 2019" CARDIOLOGY NOTE 08/14: "EJECTION FRACTION DROPPING FROM 50% TO 55% IN 2018 TO 20-25% AT THIS TIME." RISKS: H/O CAD WITH STENT (PROGRESS NOTE 08/13) CARDIOMYOPATHY (CONSULTATION NOTE - CARDIOLOGY 08/14) HYPERTENSIVE EMERGENCY (H&P 08/12) TREATMENT: ECHOCARDIOGRAM (08/15) CARDIOLOGY CONSULT (08/14) COZAAR (08/13-PRESENT) ALDACTONE (08/13-PRESENT) [employer] Station [employer] Winform Viewer (This form is maintained as a part of the permanent medical record) 2014 [employer]. All Rights Reserved CARLITO [email or web address] Office: [phone] [facility]
--- NOTE | 2019-08-15 14:26 | CON ---
DATE OF CONSULTATION: 08/15/2019 HISTORY OF PRESENT ILLNESS: I am seeing Mr. 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 His problems are: 1. Newly-found congestive heart failure and likely nonischemic cardiomyopathy. a. History of normal LVEF in echo on 03/11/2019, 50% to 55%, mild MR, mild left atrial enlargement. b. Remote history of first marginal stenting in 03/2015. c. Left heart catheterization from 04/24/2019, demonstrates patent stent and minimal coronary artery disease otherwise. d. 2D echo from 08/14/2019 demonstrates LVEF of 20% to 25%, left atrium moderately dilated, mild MR, and moderate AI. 2. History of AV block, prompting a dual-chamber pacemaker implantation in 2008 with recent generator change in 2018. Currently with a Medtronic Advisa DR pacer. rossi. High-grade RV pacing is seen, 85%. 3. Essential hypertension. 4. Possible TIA with memory lapse and mild slurred speech. 5. Progressive fatigue. ALLERGIES: NONE NOTED. MEDICATIONS: At home included, 1. Clonidine. 2. Ezetimibe. 3. Atorvastatin. 4. Aspirin. 5. Pataday. 6. Loratadine. 7. Metformin. 8. Spironolactone. 9. Furosemide. 10. Omeprazole. 11. Budesonide. 12. Fish oil supplement. 13. Albuterol sulfate. SUBJECTIVE: Mr. Lopez is here with an episode of confusion and possibly some slurred speech. He was evaluated for a TIA. Eventually, his symptoms resolved. He was managed conservatively. Carotid Dopplers were unremarkable for stenosis. Minor plaquing was noted only. His head CT also was negative. Since then, he is doing better. His confusion is completely resolved, but follow-up evaluation revealed severely reduced LVEF. This is a new finding. Recent echocardiogram in Dr. Sharma' office in February last year demonstrated preserved LVEF. The patient also has significant fatigue and tiredness, has been bothering from at least last couple of months. He denies chest pains or angina-like discomfort. He has no PND or orthopnea at this point. He does take diuretics for fluid control. He has no fever, chills or cough. No stroke-like symptoms. No upper respiratory tract infection like symptoms recently. Rest of 12-point system otherwise unremarkable. PAST MEDICAL HISTORY: As above. The patient reports diabetes, high cholesterol, possible prior history of heart attack. SOCIAL HISTORY: The patient denies smoking, EtOH, or drug abuse. He lives with his family. He has a son. FAMILY HISTORY: Not contributory, but the father had a pacemaker/defibrillator prior to his . PHYSICAL EXAMINATION: VITAL SIGNS: Blood pressure 180/110, heart rate 60, respirations 14, and temperature 97.9 degrees Fahrenheit. GENERAL: Alert and oriented man, in no apparent distress. Slightly elevated BMI. NECK: Supple. Jugular veins not distended. CHEST: Coarse without crackles. HEART: Heart sounds are regular in rate and rhythm. No murmur or gallop. ABDOMEN: Benign. Bowel sounds positive. EXTREMITIES: Lower extremities without edema, clubbing or cyanosis. Pulses are adequate. NEUROLOGIC: The patient is nonfocal. MUSCULOSKELETAL: Without joint swelling or deformity. SKIN: Without rash. DATABASE: Pacemaker interrogation reveals a Medtronic Advisa DR dual-chamber pacemaker with longevity over 5.5 years. Lead parameters are adequate with impedance of 437 mV. The very low atrial arrhythmia burden is seen. The patient is 84.4% ventricularly paced. The EKG reviewed revealing paced rhythm. Occasional relative narrow complex PVCs are seen. The chest x-ray on admission reveals borderline cardiomegaly, no acute process or pneumonia. LABORATORY DATA: White cell count 9.8, hemoglobin 15.9, and platelet count 207. Sodium 137, potassium 4.8, BUN 17, and creatinine 1.07. The troponin level is 0.047 and 0.052. ASSESSMENT AND PLAN: Mr. Lopez is a pleasant 59-year-old man with prior history of AV block and subsequent pacemaker implantation in 2008 with recent generator change. He also has history of questionable myocardial infarction and stent placement in the OM branch, but with preserved LVEF up until last echo and cath back in last fall. He has progressive dyspnea and fatigue recently, and now on this admission, his LVEF is noted to be in a severely depressed range. So far, no obvious etiology for his sudden LV ejection fraction drop is noted. There is no obvious evidence of heart cath was clear of major stenosis. Also, there is no recent viral process suggestive of viral endocarditis. He is markedly symptomatic with fatigue and tiredness, and he is predominantly RV paced with a wide complex. We discussed the potential treatment options. I would like to evaluate his pacemaker to assess his AV conduction. If indeed a poor AV conduction is seen and his RV pacing likely will continue, he may benefit from Bi-V pacemaker upgrade. Also discussed the potential need for defibrillator therapy in long-term, especially if the LVEF remains depressed. Hence, to avoid reoperation, it might be reasonable to proceed with a full Bi-V ICD upgrade if indeed his RV pacing is likely to continue in the future. I detailed the procedure to him. He understands the risk of infection, bleeding, pneumothorax, tamponade, lead dislodgement, device malfunctions and recalls, willing to proceed. We will get his pacemaker interrogated, reprogrammed, and likely proceed with the above procedure tomorrow. This was discussed with the patient, his brother, as well as Dr. Maher. Thank you again for letting me to participate in the care of this patient. Job ID: [id number]
[2019-08-15] MEDS: Latanoprost 0.005% Ophth Soln 2.5 ml Bottle EA EYE SCH (22:02)
--- NOTE | 2019-08-15 22:37 | PDOC.HOSPP ---
- Subjective Encounter Date: 08/15/19 Encounter Time: 10:00 Subjective: no overnight evnets. feeling well and no additional episodes of confusion or complaints. Pending pacemaker interrogation and possible upgrade. - Objective Vital Signs & Weight: Vital Signs (12 hours) Temp Pulse Resp BP BP Pulse Ox 08/15/19 20:00 97.7 F 64 16 174/86 H 94 L 08/15/19 16:04 68 155/85 H 08/15/19 15:52 98.6 F 60 16 151/74 H 98 08/15/19 12:00 97.9 F 84 19 138/77 96 Weight Weight 236 lb I&O: 08/14/19 08/15/19 08/16/19 06:59 06:59 06:59 Intake Total 1240 880 Balance 1240 880 Result Diagrams: 08/15/19 04:42 08/15/19 04:42 Additional Labs: Accuchecks 08/15/19 08/15/19 08/15/19 20:13 16:53 11:00 POC Glucose 107 116 H 105 08/15/19 06:21 POC Glucose 117 H Hospitalist ROS - Review of Systems Constitutional: denies: fever, chills, sweats, weakness, malaise, other Respiratory: denies: cough, dry, shortness of breath, hemoptysis, SOB with excertion, pleuritic pain, sputum, wheezing, other Cardiovascular: denies: chest pain, palpitations, orthopnea, paroxysmal noc. dyspnea, edema, light headedness, other Gastrointestinal: denies: nausea, vomiting, abdominal pain, diarrhea, constipation, melena, hematochezia, other Genitourinary: denies: dysuria, frequency, incontinence, hematuria, retention, other Neurological: denies: confusion - Medication Medications: Active Medications Generic Name Dose Route Start Last Admin Trade Name Freq PRN Reason Stop Dose Admin Aspirin 81 mg 08/13/19 09:00 08/15/19 08:15 Aspirin Chewable PO 81 mg DAILY [facility]ESHA Administration Atorvastatin Calcium 80 mg 08/13/19 09:00 08/15/19 08:15 Lipitor PO 80 mg DAILY [facility] Administration Clopidogrel Bisulfate 75 mg 08/13/19 09:00 08/15/19 08:16 Plavix PO 75 mg DAILY [facility] Administration Ketotifen Fumarate 1 drop 08/12/19 21:00 08/15/19 22:02 Zaditor 0.025% Ophth Soln EA EYE Not Given BID [facility] Latanoprost 2 drop 08/15/19 21:00 08/15/19 22:02 Xalatan 0.005% Ophth Soln EA EYE Not Given BID [facility] Metformin HCl 500 mg 08/13/19 08:00 08/15/19 17:45 Glucophage PO 500 mg BID-WM KEESHA Administration Pantoprazole Sodium 40 mg 08/13/19 09:00 08/15/19 08:16 Protonix PO 40 mg DAILY [facility] Administration Sacubitril/Valsartan 1 tab 08/15/19 21:00 08/15/19 22:00 Entresto 24 Mg-26 Mg Tablet PO 1 tab BID [facility]ESHA Administration Spironolactone 50 mg 08/13/19 09:00 08/15/19 08:15 Aldactone PO 50 mg DAILY [facility] Administration - Exam General Appearance: NAD, awake alert Neck: no JVD Heart: RRR, no murmur, no gallops, no rubs, normal peripheral pulses Respiratory: CTAB, no wheezes, no rales, no ronchi, normal chest expansion, no tachypnea, normal percussion Gastrointestinal: soft, non-tender, non-distended, normal bowel sounds, no palpable masses, no hepatomegaly, no splenomegaly, no bruit Extremities: no edema Neurological: cranial nerve grossly intact Psychiatric: normal affect, normal behavior, A&O x 3 Hosp A/P (1) Heart failure with reduced ejection fraction, NYHA class II Code(s): I50.20 - UNSPECIFIED SYSTOLIC (CONGESTIVE) HEART FAILURE Status: Acute (2) T2DM (type 2 diabetes mellitus) Status: Acute (3) Presence of stent in coronary artery in patient with coronary artery disease Code(s): I25.10 - ATHSCL HEART DISEASE OF [place] CORONARY ARTERY W/O ANG PCTRS; Z95.5 - PRESENCE OF CORONARY ANGIOPLASTY IMPLANT AND GRAFT Status: Acute (4) TIA (transient ischemic attack) Code(s): G45.9 - TRANSIENT CEREBRAL ISCHEMIC ATTACK, UNSPECIFIED Status: Acute - Plan * no change in clinical condition * ECHO showing EF 20-25% significantly reduced compared to 2019 * on losartan, metoprolol, and spironolactone; Appreciated cardiology recs; pending pacemaker interrogation with possible upgrade 08/16
[2019-08-16 05:18] LABS: Anion Gap 13 mmol/L (10-20); BUN (Urea Nitrogen) 18 mg/dL (8.4-25.7); Calc. Creatinine Clearance 115 mL/min (70-130); Calcium 9.5 mg/dL (7.8-10.44); Carbon Dioxide 22 mmol/L (22-29); Chloride 106 mmol/L (98-107); Estimated GFR-MDRD 71; Glucose 120 mg/dL (70-105); Magnesium 1.8 mg/dL (1.6-2.6); Potassium 4.2 mmol/L (3.5-5.1); Sodium 137 mmol/L (136-145)
[2019-08-16] MEDS: Carvedilol 6.25 MG TAB PO SCH ×2 (05:26→19:02)
[2019-08-16] MEDS: metFORMIN 500 MG TAB PO SCH ×2 (10:04→19:03)
[2019-08-16] MEDS: Atorvastatin Calcium 40 MG TAB PO SCH (10:05)
[2019-08-16] MEDS: Spironolactone 25 MG TAB PO SCH (10:05)
[2019-08-16] MEDS: Latanoprost 0.005% Ophth Soln 2.5 ml Bottle EA EYE SCH ×2 (10:06→20:35)
[2019-08-16] MEDS: Ketotifen Fumarate 0.025% Ophth Soln 5 ml Bottle EA EYE SCH ×2 (10:06→20:35)
[2019-08-16] MEDS: Aspirin Chewable 81 MG TAB PO SCH (10:06)
[2019-08-16] MEDS: Clopidogrel Bisulfate 75 MG TAB PO SCH (10:06)
[2019-08-16] MEDS: Furosemide 40 MG TAB PO SCH (10:06)
[2019-08-16] MEDS ORDERED: Iopamidol 370 76% 50 ML VIAL FS ONE (10:58)
--- NOTE | 2019-08-16 13:13 | PDOC.HOSPP ---
- Subjective Encounter Date: 08/16/19 Encounter Time: 09:00 Subjective: no overnight events. this morning, lying comfortably in bed and has no complaints. Pending pacemaker interrogation and possible upgrade. - Objective Vital Signs & Weight: Vital Signs (12 hours) Temp Pulse Resp BP BP Pulse Ox 08/16/19 12:17 43 L 16 98 08/16/19 11:48 97.8 F 65 20 131/91 H 94 L 08/16/19 07:48 98.1 F 85 23 H 133/88 97 08/16/19 06:46 40 L 16 97 08/16/19 05:26 136/84 08/16/19 03:51 98 F 67 16 95 Weight Weight 236 lb I&O: 08/15/19 08/16/19 08/17/19 06:59 06:59 06:59 Intake Total 880 Balance 880 Result Diagrams: 08/15/19 04:42 08/16/19 04:29 Additional Labs: Accuchecks 08/16/19 08/16/19 08/15/19 10:31 06:02 20:13 POC Glucose 106 108 107 08/15/19 16:53 POC Glucose 116 H Hospitalist ROS - Review of Systems Constitutional: denies: fever, chills, sweats, weakness, malaise, other Respiratory: denies: cough, dry, shortness of breath, hemoptysis, SOB with excertion, pleuritic pain, sputum, wheezing, other Cardiovascular: denies: chest pain, palpitations, orthopnea, paroxysmal noc. dyspnea, edema, light headedness, other Gastrointestinal: denies: nausea, vomiting, abdominal pain, diarrhea, constipation, melena, hematochezia, other Neurological: denies: weakness, numbness, incoordination, change in speech, confusion, seizures, other - Medication Medications: Active Medications Generic Name Dose Route Start Last Admin Trade Name Freq PRN Reason Stop Dose Admin Albuterol/Ipratropium 3 ml 08/16/19 01:00 08/16/19 12:17 Duoneb NEB 3 ml A4OF-HE KEESHA Administration Aspirin 81 mg 08/13/19 09:00 08/16/19 10:06 Aspirin Chewable PO Not Given DAILY [facility]ES[facility] Atorvastatin Calcium 80 mg 08/13/19 09:00 08/16/19 10:05 Lipitor PO 80 mg DAILY [facility] Administration Carvedilol 12.5 mg 08/16/19 08:00 08/16/19 05:26 Coreg PO 12.5 mg BID-WM KEESHA Administration Clopidogrel Bisulfate 75 mg 08/13/19 09:00 08/16/19 10:06 Plavix PO Not Given DAILY [facility] Furosemide 40 mg 08/16/19 07:30 08/16/19 10:06 Lasix PO 40 mg DAILY-AC KEESHA Administration Ketotifen Fumarate 1 drop 08/12/19 21:00 08/16/19 10:06 Zaditor 0.025% Ophth Soln EA EYE Not Given BID KEESHA Latanoprost 2 drop 08/15/19 21:00 08/16/19 10:06 Xalatan 0.005% Ophth Soln EA EYE Not Given BID [facility] Metformin HCl 500 mg 08/13/19 08:00 08/16/19 10:04 Glucophage PO 500 mg BID-WM KEESHA Administration Pantoprazole Sodium 40 mg 08/13/19 09:00 08/16/19 10:05 Protonix PO 40 mg DAILY [facility] Administration Sacubitril/Valsartan 1 tab 08/15/19 21:00 08/16/19 10:12 Entresto 24 Mg-26 Mg Tablet PO 1 tab BID [facility] Administration Spironolactone 50 mg 08/13/19 09:00 08/16/19 10:05 Aldactone PO 50 mg DAILY [facility] Administration - Exam General Appearance: NAD, awake alert Eye: PERRL ENT: normocephalic atraumatic Neck: no JVD Heart: RRR, no murmur, no gallops, no rubs, normal peripheral pulses Respiratory: CTAB, no wheezes, no rales, no ronchi, normal chest expansion, no tachypnea Gastrointestinal: soft, non-tender, non-distended, normal bowel sounds, no palpable masses, no hepatomegaly, no splenomegaly, no bruit Extremities: no edema Psychiatric: normal affect, normal behavior, A&O x 3 Hosp A/P (1) Heart failure with reduced ejection fraction, NYHA class II Code(s): I50.20 - UNSPECIFIED SYSTOLIC (CONGESTIVE) HEART FAILURE Status: Acute (2) T2DM (type 2 diabetes mellitus) Status: Acute (3) Presence of stent in coronary artery in patient with coronary artery disease Code(s): I25.10 - ATHSCL HEART DISEASE OF [place] CORONARY ARTERY W/O ANG PCTRS; Z95.5 - PRESENCE OF CORONARY ANGIOPLASTY IMPLANT AND GRAFT Status: Acute (4) TIA (transient ischemic attack) Code(s): G45.9 - TRANSIENT CEREBRAL ISCHEMIC ATTACK, UNSPECIFIED Status: Acute - Plan * no change in clinical condition * ECHO showing EF 20-25% significantly reduced compared to 2019 * on losartan, metoprolol, and spironolactone; Appreciated cardiology recs; pending pacemaker interrogation with possible upgrade 08/16
[2019-08-16] MEDS ORDERED: Lidocaine 1% (PF) 30 ML VIAL ONE (14:53)
[2019-08-16] MEDS ORDERED: Fentanyl 100 MCG/2 ML VIAL ONE (15:26)
[2019-08-16] MEDS ORDERED: Midazolam HCl 2 mg/2 ml Vial ONE (15:26)
[2019-08-16] MEDS ORDERED: Propofol 500 MG/50 ML VIAL ONE ×2 (15:26→16:31)
[2019-08-16] MEDS ORDERED: PHENYLEPHRINE-NS 100 MCG/ML 10 ML SYRINGE ONE (16:33)
[2019-08-16] MEDS ORDERED: Promethazine HCl 25 MG/ML VIAL IM PRN (17:38)
[2019-08-16] MEDS ORDERED: Promethazine HCl 25 MG/ML VIAL SLOW IVP PRN (17:38)
[2019-08-16] MEDS ORDERED: Ondansetron HCl/PF 4 MG/2 ML Vial IVP PRN (17:38)
--- NOTE | 2019-08-16 18:22 | RAD ---
Chest one view HISTORY: Defibrillator placement. COMPARISON: 08/12/2019. FINDINGS: Cardiac silhouette is magnified and enlarged. Shallow inspiration accentuates pulmonary mar kings. Mediastinum is midline. A multi lead left subclavian cardiac electronic device is in place with leads overlying the coronary sinus, right atrium, and right ventricle. No evidence of pneumothorax. environmental monitoring specialist leads overlie the chest. IMPRESSION: Left subclavian cardiac electronic device is in good radiographic position. Cardiomegaly.
[2019-08-16] MEDS ORDERED: Acetaminophen/Codeine 30-300mg Tablet PO STA (18:56)
[2019-08-16] MEDS ORDERED: Acetaminophen/Codeine 30-300mg Tablet PO PRN ×2 (19:00)
--- NOTE | 2019-08-16 19:01 | PDOC.EVN ---
Event Note - Event Note Event Note: Patietn back from pacemaker placement. Tolerated procedure well however writhing in pain due to incision. Change tylenol 3 from PRN to STAT. Patient wants to try and leave today, said that maybe later if pain improves and he chooses to.
[2019-08-16] MEDS ORDERED: ceFAZolin 1 GM/D5W 1 GM in Premix Bag 1 BAG IVPB SCH (22:00)
[2019-08-16] MEDS: CEFAZOLIN 1 GM in Sodium Chloride 0.9% 100 ML IVPB SCH (23:32)
[2019-08-17 05:12] LABS: #Eosinphils 0.3 thou/uL (0.0-0.7); #Lymphocytes 1.6 thou/uL (1.20-3.40); %Basophils 0.4 % (0.0-1.0); %Eosinophils 2.8 % (0.0-10.0); %Lymphocytes 14.4 % (21.0-51.0); %Monocytes 8.7 % (0.0-10.0); %Neutrophils 73.8 % (42.0-75.0); Hemoglobin 16.1 g/dL (14.0-18.0); Mean Corpuscular HGB CONC 34.3 g/dL (32.0-36.0); Mean Corpuscular Hemoglobin 29.7 pg (27.0-31.0); Mean Corpuscular Volume 86.5 fL (78.0-98.0); Mean Platelet Volume 8.5 fL (7.4-10.4); Platelet Count 174 thou/uL (130-400); RBC Distribution Width 13.3 % (11.5-14.5); Red Blood Cell (RBC) Count 5.41 mill/uL (4.70-6.10); White Blood Cell (WBC) Count 10.9 thou/uL (4.8-10.8)
[2019-08-17 05:32] LABS: Anion Gap 13 mmol/L (10-20); BUN (Urea Nitrogen) 18 mg/dL (8.4-25.7); Calc. Creatinine Clearance 120 mL/min (70-130); Calcium 9.1 mg/dL (7.8-10.44); Carbon Dioxide 22 mmol/L (22-29); Chloride 104 mmol/L (98-107); Estimated GFR-MDRD 74; Glucose 104 mg/dL (70-105); Magnesium 1.8 mg/dL (1.6-2.6); Potassium 4.1 mmol/L (3.5-5.1); Sodium 135 mmol/L (136-145)
[2019-08-17] MEDS: CEFAZOLIN 1 GM in Sodium Chloride 0.9% 100 ML IVPB SCH (05:42)
[2019-08-17] MEDS: Carvedilol 6.25 MG TAB PO SCH (09:11)
[2019-08-17] MEDS: Cephalexin 250 MG CAP PO SCH ×2 (09:12→13:32)
[2019-08-17] MEDS: metFORMIN 500 MG TAB PO SCH (09:12)
[2019-08-17] MEDS: Clopidogrel Bisulfate 75 MG TAB PO SCH (09:12)
[2019-08-17] MEDS: Furosemide 40 MG TAB PO SCH (09:12)
[2019-08-17] MEDS: Aspirin Chewable 81 MG TAB PO SCH (09:12)
[2019-08-17] MEDS: Atorvastatin Calcium 40 MG TAB PO SCH (09:12)
[2019-08-17] MEDS: Spironolactone 25 MG TAB PO SCH (09:12)
[2019-08-17] MEDS: Ketotifen Fumarate 0.025% Ophth Soln 5 ml Bottle EA EYE SCH (09:13)
[2019-08-17] MEDS: Latanoprost 0.005% Ophth Soln 2.5 ml Bottle EA EYE SCH (09:13)
[2019-08-17 11:46] VITALS: BP 114/84; TEMP 99.2
--- NOTE | 2019-08-18 02:26 | DIS ---
DATE OF ADMISSION: 08/12/2019 DATE OF DISCHARGE: 08/17/2019 PRIMARY CARE PROVIDER: Dr. Paul Wing. DISCHARGE DIAGNOSES: 1. Transient ischemic attack. 2. Nonischemic cardiomyopathy. 3. Hyponatremia. 4. Acute systolic congestive heart failure, [place] Heart Association class II. CONSULTATIONS DURING THIS HOSPITALIZATION: Cardiology, Dr. Maher and Electrophysiology, Dr. Reyes. DISCHARGE MEDICATIONS: 1. Aspirin 81 mg daily. 2. Atorvastatin 80 mg daily. 3. Budesonide 1 vial inhalation 2 times a day. 4. Catapres 0.1 mg at bedtime. 5. Zetia 10 mg daily. 6. Fish oil 1000 mg daily. 7. Furosemide 40 mg daily. 8. Loratadine 10 mg daily. 9. Metformin 500 mg 2 times a day. 10. Omeprazole 20 mg daily. 11. Spironolactone 50 mg daily. 12. Coreg are 12.5 mg 2 times a day. 13. Cephalexin 500 mg 4 times a day for 1 week. 14. Plavix 75 mg daily. 15. Entresto 24/26 mg one tablet b.i.d. 16. ProAir HFA p.r.n. 17. Olopatadine eye drops p.r.n. Please note that the new medications from this hospitalization are Coreg, cephalexin, Plavix, furosemide, and Entresto. HOSPITAL COURSE: Mr. Lopez is a pleasant 59-year-old gentleman, who was admitted to [facility] on August 12, 2019 for transient ischemic attack. Please refer to Dr. Quezada's history and physical note dated August 12, 2019 for further details. He could not obtain an MRI because of pacemaker. 2D echocardiogram showed left ventricular ejection fraction of 20% to 25%. Cardiology Service was consulted. He has been started on beta roney and Entresto. His ELGIN inhibitor was discontinued. He was also seen by Electrophysiology Service and was recommended upgrade to BiV ICD. He underwent the procedure on August 16, 2019. He is being discharged home in a stable condition. Many thanks for allowing me to participate in your patient's care. Please feel free to contact me with any questions or concerns. ACTIVITY: As tolerated. DIET: Low-sodium, heart healthy and diabetic diet. POST-ACUTE CARE FOLLOWUP: With primary care provider on August 20, 2019 at 3 p.m. and with Cardiology, Dr. Maher in 2 weeks. DISCHARGE DESTINATION: Home. TOTAL AMOUNT OF TIME SPENT COORDINATING THIS DISCHARGE: 33 minutes. Job ID: [id number]
--- NOTE | 2019-08-19 04:18 | PQF ---
MARIMAR CHAUDHARI DAVID [id number] CLINICAL DOCUMENTATION CLARIFICATION FORM: POST DISCHARGE Addendum to original discharge summary date: ____ Late entry note date: __ DATE: 08/19/2019 ATTN: Augie Rollins Please exercise your independent, professional judgment in responding to the clarification form. Clinical indicators are provided on the bottom of this form for your review In your clinical opinion based on clinical findings below, can you please identify the reason for Inpatient admission if due to: Please check appropriate box(s): [ x] TIA [ ] CHF exacerbation [ ] HTN emergency [ ] Other diagnosis [ ] Unable to determine For continuity of documentation, please document condition throughout progress notes and discharge summary. Thank You. CLINICAL INDICATORS - SIGNS / SYMPTOMS / LABS Vital signs 08/12 BP 202/105, Pulse 82, Resp20, Temp 99.2 H&P p1 08/12 Dr Quezada Had a conversation over the phone with his , who told him he sounded confused and that he had slurred speech so asked him to come to the ED H&P p1 08/12 Dr Quezada Also endorses blurry vision during his episode of confusion, increased urinary frequency over the past week and nonadherence to al his medications H&P p1 08/12 Dr Quezada In the ED, was found to have grossly elevated BP, so administered a nitro patch and was admitted to the stroke floor for observation H&P p4 08/12 Dr Quezada came with grossly elevated BP due to medication nonadherence H&P p4 08/12 Dr Quezada symptoms a/w TIA (slurred speech); labs showed indeterminate trop; therefore emergency; symptoms resolve on presentation Consult p1 08/[address] revealed no acute findings. His echocardiogram, however, reveals that his ejection fraction has fallen to 20% to 25%. RISK FACTORS Hospitalist H&P p1 08/12 CAD s/p stent and pacemaker Hospitalist H&P p1 08/12 HTN Hospitalist H&P p1 08/12 History of TIA/CVA Hospitalist H&P p1 08/12 High cholesterol Hospitalist H&P p1 08/12 T2DM Hospitalist H&P p3 08/12 Hypertensive emergency Cardiology consult p3 08/14 Non-ischemic Cardiomyopathy Cardiology consult p3 08/14 Paroxysmal Afib Physician Documentation p1 08/16 Acute on chronic Combined CHF TREATMENTS: AUG 25 Aspirin Chewable 81mg po AUG 25 IVF AUG 25 Plavix 75mg po AUG 25 Cozaar 50 mg po AUG 25 Lasix 40mg po AUG 25 IV Cefazolin 1gm AUG 25 Keflex 500mg po Cardiology consult08/14 Luis Shen Carotid Doppley study ordered 08/13 Electrophysiology consult 08/15 Dr Eric Beltrán BiVent ICD 08/[address] Reyes, Jerel Order 08/14 Dr Quezada Status: Inpatient; Reason for Inpatient Admission: heart failure with severely reduced ejection fraction (This form is maintained as a part of the permanent medical record) 2014 [employer]. All Rights Reserved [email or web address]
--- NOTE | 2019-08-19 04:21 | PQF ---
MARIMAR CHAUDHARI DAVID [id number] [facility] [place] [id number] CLINICAL DOCUMENTATION CLARIFICATION FORM: POST DISCHARGE Addendum to original discharge summary date: ____ Late entry note date: __ DATE: 08/19/2019 ATTN: Augie Rollins Please exercise your independent, professional judgment in responding to the clarification form. Clinical indicators are provided on the bottom of this form for your review Please check appropriate box(s): [ x ] Encephalopathy: Type: [ x ] Acute [ ] Subacute [ ] Chronic Etiology: [ x ] Hypertensive [ ] Metabolic [ ] Toxic [ ] Drug induced: [ ] Unspecified [ ] in the setting of underlying dementia [ ] Other (please specify) [ ] Transient Alteration of Awareness [ ] Other diagnosis [ ] Unable to determine In addition, please specify: Present on Admission (POA): [ x ] Yes [ ] No [ ] Unable to determine For continuity of documentation, please document condition throughout progress notes and discharge summary. Thank You. CLINICAL INDICATORS - SIGNS / SYMPTOMS / LABS Vital signs 08/12 BP 202/105, Pulse 82, Resp20, Temp 99.2 Laboratory 08/17 Sodium 135 Laboratory Glucose 171 (08/12); 136 (08/13); 133 (08/14); 116 (08/15); 126 (08/16) ; 125 (08/17) H&P p1 08/12 Dr Quezada Had a conversation over the phone with his , who told him he sounded confused and that he had slurred speech so asked him to come to the ED H&P p1 08/12 Dr Quezada Also endorses blurry vision during his episode of confusion, increased urinary frequency over the past week and nonadherence to al his medications H&P p1 08/12 Dr Quezada In the ED, was found to have grossly elevated BP, so administered a nitro patch and was admitted to the stroke floor for observation H&P p4 08/12 Dr Quezada came with grossly elevated BP due to medication nonadherence RISK FACTORS Hospitalist H&P p1 08/12 CAD s/p stent and pacemaker Hospitalist H&P p1 08/12 HTN Hospitalist H&P p1 08/12 History of TIA/CVA Hospitalist H&P p1 08/12 High cholesterol Hospitalist H&P p1 08/12 T2DM Hospitalist H&P p3 08/12 Hypertensive emergency Cardiology consult p3 08/14 Non-ischemic Cardiomyopathy Cardiology consult p3 08/14 Paroxysmal Afib Physician Documentation p1 08/16 Acute on chronic Combined CHF TREATMENTS: AUG 25 Aspirin Chewable 81mg po AUG 25 IVF AUG 25 Plavix 75mg po Cardiology consult08/14 Luis Shen Carotid Doppler study ordered 08/13 Electrophysilogy consult 08/15 Dr Eric Beltrán BiVent ICD 08/16 by eJrel Alvarez (This form is maintained as a part of the permanent medical record) 2014 [employer] All Rights Reserved [email or web address]
--- NOTE | 2019-08-20 10:02 | EKG ---
Test Reason : Blood Pressure : / mmHG Vent. Rate : 075 BPM Atrial Rate : 065 BPM P-R Int : 000 ms QRS Dur : 154 ms QT Int : 500 ms P-R-T Axes : 000 080 265 degrees QTc Int : 558 ms AV sequential or dual chamber electronic pacemaker Confirmed by JORGE ROJAS ([id number]) on 08/20/2019 10:01:36 AM Referred By: Confirmed By:JORGE ROJAS
--- NOTE | 2019-08-20 10:11 | EKG ---
Test Reason : Blood Pressure : / mmHG Vent. Rate : 102 BPM Atrial Rate : 060 BPM P-R Int : 000 ms QRS Dur : 122 ms QT Int : 422 ms P-R-T Axes : 000 -15 166 degrees QTc Int : 550 ms Demand pacemaker; interpretation is based on intrinsic rhythm Left ventricular hypertrophy with QRS widening and repolarization abnormality Abnormal ECG Confirmed by JORGE ROJAS ([id number]) on 08/20/2019 10:10:46 AM Referred By: DEVONTE Confirmed By:JORGE ROJAS
== END 2019-08-17 14:16 | disposition home or self-care (01) | DRG 40 ==
LOC: ERS 13:55 → 2SE 17:46 → OBSVTOIN 17:46 → INTOOBSV 17:46
PROVIDERS: ADMIT Emergency Medicine; ATTEND Internal Medicine
PROC: 0JH609Z Insertion of Cardiac Resynchronization Defibrillator Pulse Generator into Chest Subcutaneous Tissue and Fascia, Open Approach (ICD-10-PCS; principal; 2019-08-16)
PROC: 0JPT0PZ Removal of Cardiac Rhythm Related Device from Trunk Subcutaneous Tissue and Fascia, Open Approach (ICD-10-PCS; 2019-08-16)
PROC: 02HK3KZ Insertion of Defibrillator Lead into Right Ventricle, Percutaneous Approach (ICD-10-PCS; 2019-08-16)
PROC: 02H63KZ Insertion of Defibrillator Lead into Right Atrium, Percutaneous Approach (ICD-10-PCS; 2019-08-16)
DX: G45.9 Transient cerebral ischemic attack, unspecified (principal); I50.43 Acute on chronic combined systolic (congestive) and diastolic (congestive) heart failure; I16.1 Hypertensive emergency; E87.1 Hypo-osmolality and hyponatremia; I42.8 Other cardiomyopathies; I67.4 Hypertensive encephalopathy; I11.0 Hypertensive heart disease with heart failure; I25.10 Atherosclerotic heart disease of native coronary artery without angina pectoris; E11.9 Type 2 diabetes mellitus without complications; E78.00 Pure hypercholesterolemia, unspecified; E03.9 Hypothyroidism, unspecified; G40.909 Epilepsy, unspecified, not intractable, without status epilepticus; J45.909 Unspecified asthma, uncomplicated; I48.0 Paroxysmal atrial fibrillation; G47.33 Obstructive sleep apnea (adult) (pediatric); I44.1 Atrioventricular block, second degree; Z95.5 Presence of coronary angioplasty implant and graft; Z86.73 Personal history of transient ischemic attack (TIA), and cerebral infarction without residual deficits; Z91.14 Patient's other noncompliance with medication regimen; Z79.899 Other long term (current) drug therapy; Z79.82 Long term (current) use of aspirin; Z79.84 Long term (current) use of oral hypoglycemic drugs; Z91.19 Patient's noncompliance with other medical treatment and regimen
CPT/HCPCS: 33225; 33233; 33249; 36415; 36416; 70450; 71045; 75820; 80048; 80053; 81003; 82553; 83036; 83735; 84484; 85025; 85610; 85730; 93005; 93010; 93306; 93798; 93880; 94640; C1882; C1895; C1900; J0690; J1644; J2001; J2250; J2704; J3010; J3490; J7620; Q9967

== ENCOUNTER 2020-09-23 19:12 | Emergency (ER) | payer BC | END 2020-09-23 21:23 | disposition home or self-care (01) | LOC: ERS 19:12 | DX: S61.213A Laceration without foreign body of left middle finger without damage to nail, initial encounter (principal); E11.9 Type 2 diabetes mellitus without complications; K21.9 Gastro-esophageal reflux disease without esophagitis; E78.5 Hyperlipidemia, unspecified; I10 Essential (primary) hypertension; W45.8XXA Other foreign body or object entering through skin, initial encounter | CPT/HCPCS: 12001 ==

== ENCOUNTER 2021-02-12 06:07 | Outpatient (CLI) | payer BC ==
[2021-02-13 01:29] LABS: SARS-CoV-2 PCR by NAA Not Detected (NotDetected)
== END 2021-02-12 06:08 | disposition home or self-care (01) ==
LOC: LABBT 06:07
PROVIDERS: ATTEND Internal Medicine Gastroenterology
DX: Z01.812 Encounter for preprocedural laboratory examination (principal); Z20.822 Contact with and (suspected) exposure to COVID-19
CPT/HCPCS: U0003; U0005

== ENCOUNTER 2022-09-16 12:38 | Outpatient (CLI) | payer BC | END 2022-09-16 12:39 | disposition home or self-care (01) | LOC: BICRAD 12:38 | PROVIDERS: ATTEND Family Medicine | DX: M54.50 Low back pain, unspecified (principal) | CPT/HCPCS: 72100 ==

== ENCOUNTER 2023-03-31 08:23 | Outpatient (CLI) | payer BC | END 2023-03-31 08:24 | disposition home or self-care (01) | LOC: BICCT 08:23 | PROVIDERS: ATTEND Psychiatry & Neurology Neurology | DX: M47.16 Other spondylosis with myelopathy, lumbar region (principal); R26.9 Unspecified abnormalities of gait and mobility; M51.27 Other intervertebral disc displacement, lumbosacral region | CPT/HCPCS: 72131 ==

== ENCOUNTER 2023-11-30 11:06 | Outpatient (CLI) | payer BC ==
[2023-11-30 12:11] LABS: Hematocrit 44.7 % (38.8-50.0); Hemoglobin 15.3 g/dL (13.5-17.5); Mean Corpuscular HGB CONC 34.2 g/dL (32.0-36.0); Mean Corpuscular Hemoglobin 29.9 pg (27.0-33.0); Mean Corpuscular Volume 87.5 fL (81.2-95.1); Mean Platelet Volume 10.8 fL (7.4-10.4); Platelet Count 275 10x3/uL (150-450); RBC Distribution Width 14.2 % (11.5-14.5); Red Blood Cell (RBC) Count 5.11 10x6/uL (4.32-5.72); White Blood Cell (WBC) Count 12.9 10x3/uL (3.5-10.5)
[2023-11-30 12:40] LABS: Anion Gap 16 mmol/L (10-20); BUN (Urea Nitrogen) 16 mg/dL (8.4-25.7); Calc. Creatinine Clearance 0 mL/min (70-130); Calcium 9.3 mg/dL (7.8-10.44); Carbon Dioxide 24 mmol/L (23-31); Chloride 103 mmol/L (98-107); Estimated GFR 67; Glucose 215 mg/dL (80-115); Potassium 3.8 mmol/L (3.5-5.1); Sodium 139 mmol/L (136-145)
== END 2023-11-30 11:07 | disposition home or self-care (01) ==
LOC: LABBT 11:06
PROVIDERS: ATTEND Neurological Surgery
DX: Z01.812 Encounter for preprocedural laboratory examination (principal); M43.16 Spondylolisthesis, lumbar region
CPT/HCPCS: 80048; 85027

== ENCOUNTER 2023-12-04 05:48 | Day surgery (SDC) | payer BC ==
[2023-11-30 12:01] VITALS: BMI 39.5
[2023-12-04] MEDS ORDERED: Vancomycin 1 GM VIAL ONE (06:38)
[2023-12-04] MEDS ORDERED: Sodium Chloride 0.9% 100 ML ONE (06:44)
[2023-12-04] MEDS ORDERED: CEFAZOLIN 2 GM VIAL ONE (06:44)
[2023-12-04] MEDS ORDERED: Lidocaine 1% PF 5 ML VIAL ONE (06:48)
[2023-12-04] MEDS ORDERED: PROPOFOL 20 ML ONE (06:48)
[2023-12-04] MEDS ORDERED: Rocuronium Bromide 10 MG/ML (10ML VIAL) ONE (06:48)
[2023-12-04] MEDS ORDERED: fentaNYL PF 100 MCG/2 ML SYRINGE ONE (06:48)
[2023-12-04] MEDS ORDERED: Midazolam HCl 2 mg/2 ml Vial ONE (07:18)
[2023-12-04] MEDS ORDERED: Ketamine In 0.9 % NaCl 50 MG/5 ML SYRINGE ONE (07:22)
[2023-12-04] MEDS ORDERED: Ondansetron PF 4 MG/2 ML Vial ONE (07:55)
[2023-12-04] MEDS ORDERED: Dexamethasone 20 MG/5 ML VIAL ONE (07:55)
[2023-12-04] MEDS ORDERED: Glycopyrrolate 0.2 MG/ML 5 ML SYRINGE ONE (08:49)
[2023-12-04] MEDS ORDERED: NEOSTIGMINE 3 MG/3 ML SYR 3 MG/3 ML SYRINGE ONE (08:49)
[2023-12-04] MEDS ORDERED: Ketorolac Tromethamine 30 MG (1 mL) VIAL ONE (08:49)
[2023-12-04] MEDS ORDERED: Fentanyl 250 MCG/5 ML VIAL ONE (09:20)
[2023-12-04] MEDS ORDERED: HYDROmorphone 0.5 MG/0.5 ML SYRINGE ONE ×2 (10:24→10:39)
[2023-12-04] MEDS ORDERED: Tamsulosin HCl 0.4 MG CAP ONE (17:15)
[2023-12-04] MEDS ORDERED: HYDROcodone/Acetaminophen 5/325 mg Tablet ONE (17:41)
[2023-12-04] MEDS ORDERED: Morphine 2 MG/ML VIAL ONE (17:42)
== END 2023-12-04 18:18 | disposition home or self-care (01) ==
LOC: SDC 05:48
PROVIDERS: ATTEND Neurological Surgery
PROC: 0SG307J Fusion of Lumbosacral Joint with Autologous Tissue Substitute, Posterior Approach, Anterior Column, Open Approach (ICD-10-PCS; principal; 2023-12-04)
DX: M43.16 Spondylolisthesis, lumbar region (principal); I10 Essential (primary) hypertension; E11.9 Type 2 diabetes mellitus without complications; Z88.8 Allergy status to other drugs, medicaments and biological substances
CPT/HCPCS: C1713; C1889; J1100; J1170; J1885; J2250; J2272; J2405; J2704; J3010; J3370; J3490

== ENCOUNTER 2023-12-09 12:25 | Emergency (ER) | payer BC ==
[~2023-12-09 12:25] MED LIST: Iopamidol-370 76% 500 ML MDV (1 ML CHARGE) ONE
[2023-12-09 13:47] LABS: #Basophils 0.03 10x3/uL (0.0-0.2); %Basophils 0.3 % (0.0-1.0); %Eosinophils 1.3 % (0.0-10.0); %Lymphocytes 6.7 % (21.0-51.0); %Monocytes 5.2 % (0.0-10.0); %Neutrophils 86.3 % (42.0-75.0); Hemoglobin 12.1 g/dL (14.0-18.0); Mean Corpuscular HGB CONC 34.6 g/dL (32.0-36.0); Mean Corpuscular Hemoglobin 29.6 pg (27.0-31.0); Mean Corpuscular Volume 85.6 fL (78.0-98.0); Mean Platelet Volume 10.5 fL (7.4-10.4); Platelet Count 239 10x3/uL (130-400); RBC Distribution Width 13.9 % (11.5-14.5); Red Blood Cell (RBC) Count 4.09 mill/uL (4.70-6.10)
[2023-12-09 14:04] LABS: ALT (SGPT) 21 U/L (8-55); AST (SGOT) 18 U/L (5-34); Albumin 3.3 g/dL (3.4-4.8); Alkaline Phosphatase 81 U/L (40-110); Anion Gap 20 mmol/L (10-20); BUN (Urea Nitrogen) 15 mg/dL (8.4-25.7); Bilirubin, Total 1.7 mg/dL (0.2-1.2); Calc. Creatinine Clearance 0 mL/min (70-130); Calcium 9.1 mg/dL (7.8-10.44); Carbon Dioxide 21 mmol/L (23-31); Chloride 102 mmol/L (98-107); Estimated GFR 82; Glucose 279 mg/dL (80-115); Lipase 12 U/L (8-78); Potassium 3.8 mmol/L (3.5-5.1); Protein, Total 7.3 g/dL (5.8-8.1); Sodium 139 mmol/L (136-145)
[2023-12-09 14:04] LABS: Bacteria/HPF None Seen HPF (None Seen); Bilirubin Negative (Negative); Blood, Urine Negative (Negative); Clarity Clear (Clear); Glucose, Urine (Dipstick) Normal (Negative); Ketone, Urine Negative (Negative); Leukocyte Negative Leu/uL (Negative); Nitrite Negative (Negative); Protein, Urine (Dipstick) 30 mg/dL (Neg-Trace); Specific Gravity, Urine 1.023 (1.002-1.036); Squamous Epithelial 0-3 HPF (0-3); WBC/HPF 0-3 HPF (0-3)
[2023-12-09 14:07] LABS: Urine Culture Reflex Yes Yes
== END 2023-12-09 15:21 | disposition home or self-care (01) ==
LOC: ERS 12:25
DX: K56.41 Fecal impaction (principal); K21.9 Gastro-esophageal reflux disease without esophagitis; I25.10 Atherosclerotic heart disease of native coronary artery without angina pectoris; E11.9 Type 2 diabetes mellitus without complications; E78.00 Pure hypercholesterolemia, unspecified; I11.0 Hypertensive heart disease with heart failure; I50.9 Heart failure, unspecified; Z86.73 Personal history of transient ischemic attack (TIA), and cerebral infarction without residual deficits; Z79.82 Long term (current) use of aspirin; Z79.899 Other long term (current) drug therapy
CPT/HCPCS: 36415; 74177; 80053; 81001; 83690; 85025; 87086; Q9967

== ENCOUNTER 2023-12-18 10:56 | Outpatient (CLI) | payer BC | END 2023-12-18 10:57 | disposition home or self-care (01) | LOC: BICRAD 10:56 | PROVIDERS: ATTEND Neurological Surgery | DX: M43.16 Spondylolisthesis, lumbar region (principal); Z98.890 Other specified postprocedural states | CPT/HCPCS: 72100 ==

== ENCOUNTER 2024-05-03 10:05 | Emergency (ER) | payer MEDICARE, BC ==
[2024-05-03 10:52] LABS: #Basophils 0.05 10x3/uL (0.0-0.2); %Basophils 0.6 % (0.0-1.0); %Eosinophils 3.8 % (0.0-10.0); %Lymphocytes 17.1 % (21.0-51.0); %Monocytes 6.3 % (0.0-10.0); Hematocrit 36.2 % (42.0-52.0); Hemoglobin 12.1 g/dL (14.0-18.0); Mean Corpuscular HGB CONC 33.4 g/dL (32.0-36.0); Mean Corpuscular Volume 86.8 fL (78.0-98.0); Mean Platelet Volume 11.1 fL (7.4-10.4); Platelet Count 186 10x3/uL (130-400); RBC Distribution Width 14.9 % (11.5-14.5); Red Blood Cell (RBC) Count 4.17 mill/uL (4.70-6.10)
[2024-05-03 11:27] LABS: ALT (SGPT) 30 U/L (8-55); AST (SGOT) 16 U/L (5-34); Albumin 3.9 g/dL (3.4-4.8); Alkaline Phosphatase 104 U/L (40-110); Anion Gap 17 mmol/L (10-20); BUN (Urea Nitrogen) 17 mg/dL (8.4-25.7); Bilirubin, Total 0.8 mg/dL (0.2-1.2); Calc. Creatinine Clearance 0 mL/min (70-130); Calcium 8.8 mg/dL (7.8-10.44); Carbon Dioxide 22 mmol/L (23-31); Chloride 103 mmol/L (98-107); Estimated GFR 47; Globulin 3.4 g/dL (2.4-3.5); Glucose 121 mg/dL (80-115); Protein, Total 7.3 g/dL (5.8-8.1); Sodium 138 mmol/L (136-145)
[2024-05-03 11:57] LABS: Troponin I Less than 0.010 ng/mL (< 0.028)
[2024-05-03 12:02] LABS: Bacteria/HPF None Seen HPF (None Seen); Bilirubin Negative (Negative); Blood, Urine Negative (Negative); CAUTI Indications for Culture Pelvic or flank pain; Clarity Clear (Clear); Glucose, Urine (Dipstick) Normal (Negative); Ketone, Urine Negative (Negative); Leukocyte Negative Leu/uL (Negative); Nitrite Negative (Negative); Protein, Urine (Dipstick) Negative (Neg-Trace); RBC/HPF 0-3 HPF (0-3); Specific Gravity, Urine 1.005 (1.002-1.036); Squamous Epithelial 0-3 HPF (0-3); Urobilinogen Normal mg/dL (Less than 2); WBC/HPF 0-3 HPF (0-3); pH, Urine 5.5 (5.0-9.0)
[2024-05-03 12:04] LABS: Urine Culture Reflex No No
[2024-05-03 15:19] LABS: Anion Gap 15 mmol/L (10-20); BUN (Urea Nitrogen) 16 mg/dL (8.4-25.7); Calc. Creatinine Clearance 0 mL/min (70-130); Calcium 8.5 mg/dL (7.8-10.44); Carbon Dioxide 22 mmol/L (23-31); Chloride 105 mmol/L (98-107); Estimated GFR 56; Glucose 103 mg/dL (80-115); Potassium 3.9 mmol/L (3.5-5.1); Sodium 138 mmol/L (136-145)
== END 2024-05-03 16:49 | disposition home or self-care (01) ==
LOC: ERS 10:05
DX: N17.9 Acute kidney failure, unspecified (principal); I10 Essential (primary) hypertension; I25.10 Atherosclerotic heart disease of native coronary artery without angina pectoris
CPT/HCPCS: 36415; 36416; 71045; 80053; 81001; 82550; 83880; 84484; 85025; 93005; 96360; 96361

== ENCOUNTER 2024-05-10 07:19 | Day surgery (SDC) | payer BC, MEDICARE ==
[2024-05-10] MEDS ORDERED: Sodium Bicarbonate 2.5 MEQ/5 ML SDV ONE (07:58)
[2024-05-10 10:26] LABS: CSF Source CSF; Clarity Clear (Clear); Tube # 3
[2024-05-10 10:27] LABS: CSF RBC Count - Manual 15 /cu.mm (None Seen); CSF WBC/NonHematics Count-Man 0 /cu.mm (0-5)
[2024-05-10 10:36] LABS: CSF, Protein 53.4 mg/dL (15-40)
[2024-05-10 13:57] LABS: Reference Lab Name LABCORP
[2024-05-13 16:37] LABS: A/G Ratio 1.2 (0.7-1.7); Albumin 3.4 g/dL (2.9-4.4); Alpha 1 0.2 g/dL (0.0-0.4); Alpha 2 0.8 g/dL (0.4-1.0); Gamma 0.8 g/dL (0.4-1.8); Globulin, Total 2.8 g/dL (2.2-3.9); M-Spike Not Observed g/dL (Not Observed)
== END 2024-05-10 10:35 | disposition home or self-care (01) ==
LOC: RAD 07:19
PROVIDERS: ATTEND Psychiatry & Neurology Neurology
PROC: 009U3ZX Drainage of Spinal Canal, Percutaneous Approach, Diagnostic (ICD-10-PCS; principal; 2024-05-10)
DX: G60.9 Hereditary and idiopathic neuropathy, unspecified (principal); I50.9 Heart failure, unspecified; E78.5 Hyperlipidemia, unspecified; Z86.73 Personal history of transient ischemic attack (TIA), and cerebral infarction without residual deficits; Z88.8 Allergy status to other drugs, medicaments and biological substances; Z79.02 Long term (current) use of antithrombotics/antiplatelets; Z79.82 Long term (current) use of aspirin; Z79.899 Other long term (current) drug therapy
CPT/HCPCS: 62270; 82945; 83916; 84155; 84157; 84165; 89051

== ENCOUNTER 2024-05-27 08:37 | Outpatient (CLI) | payer BC, MEDICARE | END 2024-05-27 08:38 | disposition home or self-care (01) | LOC: BICRAD 08:37 | PROVIDERS: ATTEND Neurological Surgery | DX: M43.16 Spondylolisthesis, lumbar region (principal); Z98.1 Arthrodesis status | CPT/HCPCS: 72100 ==

== ENCOUNTER 2025-02-26 06:45 | Outpatient (CLI) | payer MEDICARE ==
[2025-02-26 09:58] LABS: #Basophils 0.04 10x3/uL (0.0-0.2); #Eosinophils 0.16 10x3/uL (0.0-0.7); #Monocytes 0.76 10x3/uL (0.11-0.59); #Neutrophils 10.16 10x3/uL (1.40-6.50); %Basophils 0.3 % (0.0-1.0); %Eosinophils 1.3 % (0.0-10.0); %Lymphocytes 11.0 % (21.0-51.0); %Monocytes 6.0 % (0.0-10.0); %Neutrophils 80.8 % (42.0-75.0); Hematocrit 38.7 % (42.0-52.0); Hemoglobin 12.1 g/dL (14.0-18.0); Mean Corpuscular Hemoglobin 27.3 pg (27.0-31.0); Mean Corpuscular Volume 87.4 fL (78.0-98.0); Platelet Count 179 10x3/uL (130-400); Red Blood Cell (RBC) Count 4.43 mill/uL (4.70-6.10); White Blood Cell (WBC) Count 12.57 10x3/uL (4.8-10.8)
[2025-02-26 10:18] LABS: Anion Gap 13 mmol/L (10-20); BUN (Urea Nitrogen) 9 mg/dL (8.4-25.7); Calc. Creatinine Clearance 0 mL/min (70-130); Calcium 9.1 mg/dL (7.8-10.44); Carbon Dioxide 24 mmol/L (23-31); Chloride 105 mmol/L (98-107); Glucose 115 mg/dL (80-115); Potassium 3.8 mmol/L (3.5-5.1); Sodium 138 mmol/L (136-145)
[2025-02-26 10:28] LABS: INR-International Normal Ratio 1.3; Prothrombin Time 16.6 sec (12.0-14.7)
[2025-02-26 10:29] LABS: PTT 35.0 sec (22.9-36.1)
== END 2025-02-26 06:46 | disposition home or self-care (01) ==
LOC: LABBT 06:45
PROVIDERS: ATTEND Internal Medicine Cardiovascular Disease
DX: Z01.812 Encounter for preprocedural laboratory examination (principal); I48.19 Other persistent atrial fibrillation; G45.9 Transient cerebral ischemic attack, unspecified
CPT/HCPCS: 80048; 85025; 85610; 85730

== ENCOUNTER 2025-03-05 05:46 | Day surgery (SDC) | payer MEDICARE ==
[2025-02-26 08:14] VITALS: BMI 36.9
[2025-03-05] MEDS ORDERED: PROPOFOL 200 MG/20 ML VIAL ONE (08:11)
[2025-03-05] MEDS ORDERED: Lidocaine 1% PF 5 ML VIAL ONE (08:11)
[2025-03-05] MEDS ORDERED: Glycopyrrolate 0.2 MG/ML 5 ML SYRINGE ONE (08:11)
== END 2025-03-05 09:11 | disposition home or self-care (01) ==
LOC: SDC 05:46
PROVIDERS: ATTEND Internal Medicine Cardiovascular Disease
PROC: B245ZZ4 Ultrasonography of Left Heart, Transesophageal (ICD-10-PCS; principal; 2025-03-05)
DX: I48.19 Other persistent atrial fibrillation (principal); I11.0 Hypertensive heart disease with heart failure; I50.9 Heart failure, unspecified; J45.909 Unspecified asthma, uncomplicated; E78.5 Hyperlipidemia, unspecified; Z88.8 Allergy status to other drugs, medicaments and biological substances
CPT/HCPCS: 93312; J2704

== ENCOUNTER 2025-03-29 17:53 | Emergency (ER) | payer MEDICARE, OTHER ==
[2025-03-29] MEDS ORDERED: Ibuprofen 200 MG TAB ONE (20:07)
== END 2025-03-29 20:13 | disposition home or self-care (01) ==
LOC: ERS 17:53
DX: S50.812A Abrasion of left forearm, initial encounter (principal); M25.511 Pain in right shoulder; J18.9 Pneumonia, unspecified organism; I25.10 Atherosclerotic heart disease of native coronary artery without angina pectoris; I11.0 Hypertensive heart disease with heart failure; I50.9 Heart failure, unspecified; I48.91 Unspecified atrial fibrillation; Z95.0 Presence of cardiac pacemaker; W01.0XXA Fall on same level from slipping, tripping and stumbling without subsequent striking against object, initial encounter
CPT/HCPCS: 70450; 71045